=== PATIENT | male | born 1995 | race Caucasian/White ===

== ENCOUNTER 2017-02-03 09:06 | Emergency (ER) | payer OTHER ==
[~2017-02-03] VITALS: Ht 172.7 cm; Wt 185.0 kg
[~2017-02-03 09:06] MED LIST: IBUP-1542 PO; IBUP800T25 PO; TRAM50TA2 PO
[2017-02-03 09:10] VITALS: Ht 172.7 cm; Wt 185.0 kg
[2017-02-03] MEDS ORDERED: ONDANSETRON (ODT) 4 MG TAB ODT STA (09:24)
--- NOTE | 2017-02-03 09:34 | ERD ---
ER Documentation Chief Complaint Date/Time DATE: 02/03/17 TIME: 09:32 Chief Complaint Lightheadedness, nausea and back pain since this AM. HPI 21-year-old male history of morbid obesity presents with symptoms of lightheadedness, nausea and mid back pain that began approximately an hour and half prior to evaluation this morning. He states that he had just gone to work and he was tying a rope, the pain was achy, localized to the mid back, nonexertional, getting better on its own. No chest pain associated with this. He states that his pain at the back has already been alleviated and has not returned. He reports a history of anxiety symptoms but states he has chosen not to take medication as he has been hesitant to take benzodiazepines in the past. Family history is negative for sudden cardiac , or stroke. He is a non-smoker. He has no medical problems he is aware of. ROS All systems reviewed and are negative except as per history of present illness. Medications Home Meds Active Scripts Ibuprofen* (Motrin*) 600 Mg Tab, 600 MG PO Q6H Y for PAIN AND OR ELEVATED TEMP, #30 Prov:THERESE LEWIS NP 05/16/15 Tramadol HCl (Tramadol HCl) 50 Mg Tab, 50 MG PO BID for 3 Days, TAB Prov:BENY DOSS 04/03/15 Ibuprofen* (Ibuprofen*) 800 Mg Tab, 800 MG PO Q6H Y for PAIN for 5 Days, TAB Prov:BENY DOSS 04/03/15 Allergies Allergies: Coded Allergies: No Known Allergy (Unverified , 05/15/15) PMhx/Soc History of Surgery: Yes (tonsillectomy) Anesthesia Reaction: No Hx Neurological Disorder: No Hx Respiratory Disorders: No Hx Cardiac Disorders: No Hx Psychiatric Problems: Yes (ANXIETY ) Hx Miscellaneous Medical Probl: No Hx Alcohol Use: No Hx Substance Use: No Hx Tobacco Use: Yes Smoking Status: Current some day smoker Physical Exam Vitals Vital Signs Date Time Temp Pulse Resp B/P Pulse Ox O2 Delivery O2 Flow Rate FiO2 02/03/17 09:10 98.9 95 18 173/94 97 Physical Exam General: Patient is morbidly obese, in no acute distress, mildly anxious appearing HEENT: Head is normocephalic, atraumatic. No scleral icterus. Neck: Supple. Nontender. Lungs: Clear to auscultation. Normal air movement. Heart: Regular rate and rhythm. S1 and S2 are normal. No murmurs, gallops, or rubs. Abdomen: Soft, nontender, nondistended. Bowel sounds are normoactive. Extremities: No clubbing or cyanosis. Normal pulses. Moving extremities x 4. No weakness. Neurologic: Alert and oriented 3. No focal deficits. Skin: Normal turgor. No rash or lesions. Results 24 hrs Laboratory Tests Test 02/03/17 09:38 Bedside Glucose 95mg/dL Current Medications Medications (Trade) Dose Ordered Sig/Kaycee Route PRN Reason Start Time Stop Time Status Last Admin Dose Admin Ondansetron HCl (Zofran Odt) 4 mg ONCE STAT ODT 02/03/17 09:24 02/03/17 09:27 DC 02/03/17 09:39 12-lead EKG(interpreted by supervising physician): Dr. Arguello Rate/Rhythm: Normal Sinus Rhythm, rate of 85 QRS, ST, T-waves: No changes consistent w/ acute ischemia, no intervals, no dysrhythmias, no ectopy Impression: No evidence of ischemia or arrhythmia Procedures/MDM 21-year-old male comes in with dizziness, nausea, and back pain that occurred this morning. Patient states that he has no symptoms at this time aside from nausea and he was given Zofran in the emergency room. He does have a history of anxiety which she was offered medication, Ativan p.o. but he states that he is hesitant to take medication at this time. He is symptom-free at this time. Does not have any chest pain, back pain, nausea diaphoresis or symptoms to indicate acute coronary syndrome. EKG is normal at this time. Patient symptoms are likely due to anxiety. He was given Zofran emergency department for his nausea and states that he is feeling much better at this time. He will be also follow-up with his primary care doctor for reevaluation and follow-up. Patient's blood pressure was elevated (>120/80) but appears stable without evidence of hypertension emergency or urgency. The patient was counseled about the risks of hypertension and urged to pursue outpatient monitoring and therapy within a week with their primary care physician. Departure Diagnosis: Primary Impression: Anxiety reaction Condition: YONNY Jolley PA-C Feb 03, 2017 09:34
== END 2017-02-03 10:48 | disposition home or self-care (01) ==
LOC: FTE 09:06
DX: F41.1 Generalized anxiety disorder (principal); R11.0 Nausea; F17.210 Nicotine dependence, cigarettes, uncomplicated
CPT/HCPCS: 82962; 93005; Z7502; Z7610; 99283